=== PATIENT | male | born 1995 | race Caucasian/White ===

== ENCOUNTER 2016-07-21 17:35 | Emergency (ER) | payer OTHER ==
--- NOTE | 2016-07-21 18:03 | ED NURSING NOTES ---
Clinical Report - Nurses [address] [place] [address] 07/21/2016 17:37 Patient: WESLY ERICKSON TRIAGE Triage time 17:44 Jul 21 2016. Acuity: LEVEL 3. Chief Complaint: INJURY TO LEFT HAND. GÓMEZ COMA SCORE: Gómez Coma Scale: 15- eyes open spontaneously (4); best verbal response- oriented x 4 (5); best motor response- obeys commands (6). --17:50 Sandeep Nichols R.N. 17:44 07/21/16. BP: 157/99. HR: 110. RR: 18. O2 saturation: 100%. Temp: 98.4 F. Pain level now 10. --17:50 Sandeep Nichols R.N. Weight: 108.8 kg stated. Height/Length: 77 inches Per Patient. BMI: 28.5. Growth Chart Percentile: Weight: 98.7%. Height/Length: 99.6%. --17:48 Sadneep Nichols R.N. Medications Flonase Nasal. --17:49 Sandeep Nichols R.N. Allergies No Known Drug Allergy. --17:49 Sandeep Nichols R.N. History Arrived by private vehicle. Historian: patient. Accompanied by family. This occurred just prior to arrival. ( Has a fishing hook in left thumb from fishing a half an hour ago.). 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 PAST MEDICAL HX: No history of diabetes mellitus, hypertension, heart disease or lung disease. Tetanus status: unknown. SOCIAL HX: Never smoker. No alcohol use or drug use. SELF HARM ASSESSMENT: A self harm assessment was performed. The patient answered "no" to the question "Have you recently felt down, depressed, or hopeless?" and "Do you have thoughts of harming or killing yourself?". FALL RISK ASSESSMENT: Fall risk assessment completed. No fall risk identified. NUTRITIONAL RISK ASSESSMENT: The nutritional risk assessment revealed no deficiencies. FUNCTIONAL ASSESSMENT: Functional assessment: no impairments noted. LEARNING NEEDS ASSESSMENT: The learning needs assessment revealed no barriers. ABUSE ASSESSMENT: Abuse assessment: (yes) The patient was asked "Do you feel safe in your home?". SKIN INTEGRITY ASSESSMENT: Skin integrity risk assessment completed. No skin integrity risk identified. --17:50 Sandeep Nichols R.N. PROBLEMS: Seasonal allergic rhinitis. --17:50 Sandeep Nichols R.N. ADDITIONAL SURGERIES: no known surgeries. Interventions ID band on patient. --17:50 Sandeep Nichols R.N. PHYSICAL ASSESSMENT Ambulatory to room. GENERAL / NEURO / PSYCH: Oriented X 4. Alert. Appears in no acute distress. EXTREMITIES: Capillary refill is less than 2 seconds in the extremities. Extremity pulses are within normal limits. Extremities exhibit normal ROM. Neuro-vascular status intact to the extremity. Left hand: (fishing hook in left thumb). SKIN: Skin is warm and dry. --17:53 Sandeep Nichols R.N. NURSING PROGRESS NOTES The initial plan of care for this patient includes an assessment with efforts to address patient positioning, appropriate ambient lighting and comfortable environmental temperature; impairment of the integumentary system. Reassurance given. Call light placed in reach. Side rails up x 1. Bed placed in lowest position. Brakes of bed on. --17:53 Sandeep Nichols R.N. 17:56 07/21/2016 WFSVEDO-[id number]-YBQEM PERTUSSIS IM 0.5 mL given. (Lot#: [id number], expiration date: 07/13/2018). Given in the right deltoid. Allergies verified and confirmed 5 rights. Vaccine information statement provided to the patient. --17:56 Sandeep Nichols R.N. DISPOSITION / DISCHARGE Departure time: 1814. Condition at departure: improved and stable. No learning barriers present. Discharge instructions provided and reviewed with the patient. Reviewed medication(s) side effects and dosing information. Prescription(s) given to the patient. Patient verbalized understanding. Written instructions provided in Occitan. The patient was discharged by the physician nurseryman assistant. He was discharged home and accompanied by family. He left the Emergency Department ambulatory and via private vehicle. Family member driving. --18:14 Mary Ann Richmond R.N. 18:13 07/21/16. BP: 142/68. HR: 80. RR: 16. O2 saturation: 100%. Pain level now: 0/10. --18:14 Mary Ann Richmond R.N. Locked/Released at 07/24/2016 10:52 by Sandeep Nichols R.N.
--- NOTE | 2016-07-21 18:03 | ED CLINICAL REPORT ---
Clinical Report - Physicians/Mid Levels [facility] [address] [place] [address] 07/21/2016 17:37 Patient: WESLY ERICKSON Time Seen: 17:56. Arrived- By private vehicle. Historian- patient and family. HISTORY OF PRESENT ILLNESS Chief Complaint: Injury to the left thumb. The injury happened just prior to arrival. The patient sustained a puncture wound. (argueta). ( patient was fishing when he accidentally got a fishhook in his left thumb.). Patient is experiencing mild pain. No other injury. REVIEW OF SYSTEMS No swelling, tingling, numbness or weakness. All systems otherwise negative, except as recorded above. PAST HISTORY See nurses notes. No history of heart disease or lung disease. The patient's dominant hand is the right. He has not had a prior injury to the same area. SOCIAL HISTORY Never smoker. No alcohol use or drug use. ADDITIONAL NOTES The nursing notes have been reviewed. PHYSICAL EXAM Appearance: Alert. Anxious. No acute distress. Head: Head atraumatic. Neck: Normal inspection. Neck supple. Respiratory: No respiratory distress. Back: ROM normal. Skin: Skin warm and dry. Extremities: Tip of left thumb: tenderness and visualized foreign body. No erythema or swelling. No exposed bone or loss of the nail bed on the left thumb. No wrist injury. Hand and wrist exam otherwise negative. Extremities otherwise negative. Neuro, Vascular and Tendons: Vascular status intact. Sensation intact. Motor intact. Neuro: Oriented X 3. No motor deficit. No sensory deficit. PROGRESS AND PROCEDURES Removal of Soft Tissue Foreign Body: The foreign body was a fishhook. Located in the left thumb. Prior to the procedure the risks, benefits and alternatives to the procedure were explained and consent was obtained. Local anesthesia provided using 2% lidocaine. Did not use epinephrine. Wound prepped with Hibiclens. Foreign body visualized and removed. Remove using downward pressure and gentle traction. Tetanus immunization given. Warnings provided regarding redness, swelling, pain, fever and drainage. CLINICAL IMPRESSION Removal of metal soft tissue foreign body to the left thumb. Puncture wound present. INSTRUCTIONS Protect wound and keep wound area clean. Soak in warm soapy water twice daily. Apply bacitracin twice daily. Limit use of your left hand for one days until better. No dietary restrictions. Warnings: COMPLICATIONS: Complications from this condition include: possible infection. Future problems may include infection. INFECTION: Watch for signs of infection (increasing heat and redness, pus-like drainage, swelling, or increased pain). Return or see your doctor if these signs occur. Prescription Medications: Cephalexin 500 mg: take 1 capsule orally every 6 hours for 7 days. No refill. Follow-up: Follow up with your doctor as needed. Understanding of the discharge instructions verbalized by patient. (Electronically signed by Bj Chamberlain, 07/21/2016 22:50)
--- NOTE | 2016-07-21 18:03 | ED ORDER SUMMARY ---
..... Patient: WESLY ERICKSON OrderSheet [facility] VisitID: [id number] [address] [place] [address] 20y, M Registration Date/Time: 07/21/2016 ORDER SHEET Weight: 108.8 kg (stated) Allergies: No Known Drug Allergy GENERAL ORDERS: MEDICATION ORDERS: Szczcbq-Uhgjgv-Mqxis Pertussis IM 0.5 mL (NOW, per protocol) (17:54 07/21/2016 LWhalen R.N. verbal order read back to JCoates) (17:56 LWhalen R.N.) IV FLUIDS: ORDER SHEET NOTES: [Electronically signed by Bj Chamberlain (22:50 07/21/2016)] [Electronically signed by Sandeep Nichols R.N. (10:52 07/24/2016)] [Electronically locked/signed by Sandeep Nichols R.N. (10:52 07/24/2016)]
--- NOTE | 2016-07-21 18:03 | ED NURSING NOTES ---
Clinical Report - Nurses [address] [place] [address] 07/21/2016 17:37 Patient: WESLY ERICKSON TRIAGE Triage time 17:44 Jul 21 2016. Acuity: LEVEL 3. Chief Complaint: INJURY TO LEFT HAND. GÓMEZ COMA SCORE: Gómez Coma Scale: 15- eyes open spontaneously (4); best verbal response- oriented x 4 (5); best motor response- obeys commands (6). --17:50 Sandeep Nichols R.N. 17:44 07/21/16. BP: 157/99. HR: 110. RR: 18. O2 saturation: 100%. Temp: 98.4 F. Pain level now 10. --17:50 Sandeep Nichols R.N. Weight: 108.8 kg stated. Height/Length: 77 inches Per Patient. BMI: 28.5. Growth Chart Percentile: Weight: 98.7%. Height/Length: 99.6%. --17:48 Sandeep Nichols R.N. Medications Flonase Nasal. --17:49 Sandeep Nichols R.N. Allergies No Known Drug Allergy. --17:49 Sandeep Nichols R.N. History Arrived by private vehicle. Historian: patient. Accompanied by family. This occurred just prior to arrival. ( Has a fishing hook in left thumb from fishing a half an hour ago.). 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 PAST MEDICAL HX: No history of diabetes mellitus, hypertension, heart disease or lung disease. Tetanus status: unknown. SOCIAL HX: Never smoker. No alcohol use or drug use. SELF HARM ASSESSMENT: A self harm assessment was performed. The patient answered "no" to the question "Have you recently felt down, depressed, or hopeless?" and "Do you have thoughts of harming or killing yourself?". FALL RISK ASSESSMENT: Fall risk assessment completed. No fall risk identified. NUTRITIONAL RISK ASSESSMENT: The nutritional risk assessment revealed no deficiencies. FUNCTIONAL ASSESSMENT: Functional assessment: no impairments noted. LEARNING NEEDS ASSESSMENT: The learning needs assessment revealed no barriers. ABUSE ASSESSMENT: Abuse assessment: (yes) The patient was asked "Do you feel safe in your home?". SKIN INTEGRITY ASSESSMENT: Skin integrity risk assessment completed. No skin integrity risk identified. --17:50 Sandeep Nichols R.N. PROBLEMS: Seasonal allergic rhinitis. --17:50 Sandeep Nichols R.N. ADDITIONAL SURGERIES: no known surgeries. Interventions ID band on patient. --17:50 Sandeep Nichols R.N. PHYSICAL ASSESSMENT Ambulatory to room. GENERAL / NEURO / PSYCH: Oriented X 4. Alert. Appears in no acute distress. EXTREMITIES: Capillary refill is less than 2 seconds in the extremities. Extremity pulses are within normal limits. Extremities exhibit normal ROM. Neuro-vascular status intact to the extremity. Left hand: (fishing hook in left thumb). SKIN: Skin is warm and dry. --17:53 Sandeep Nichols R.N. NURSING PROGRESS NOTES The initial plan of care for this patient includes an assessment with efforts to address patient positioning, appropriate ambient lighting and comfortable environmental temperature; impairment of the integumentary system. Reassurance given. Call light placed in reach. Side rails up x 1. Bed placed in lowest position. Brakes of bed on. --17:53 Sandeep Nichols R.N. 17:56 07/21/2016 [id number]-MKVUGJ-GRTOT PERTUSSIS IM 0.5 mL given. (Lot#: [id number], expiration date: 07/13/2018). Given in the right deltoid. Allergies verified and confirmed 5 rights. Vaccine information statement provided to the patient. --17:56 Sandeep Nichols R.N. DISPOSITION / DISCHARGE Departure time: 1814. Condition at departure: improved and stable. No learning barriers present. Discharge instructions provided and reviewed with the patient. Reviewed medication(s) side effects and dosing information. Prescription(s) given to the patient. Patient verbalized understanding. Written instructions provided in Slovenian. The patient was discharged by the physician orthotics prosthetics assistant. He was discharged home and accompanied by family. He left the Emergency Department ambulatory and via private vehicle. Family member driving. --18:14 Mary Ann Richmond R.N. 18:13 07/21/16. BP: 142/68. HR: 80. RR: 16. O2 saturation: 100%. Pain level now: 0/10. --18:14 Mary Ann Richmond R.N. Locked/Released at 07/24/2016 10:52 by Sandeep Nichols R.N.
--- NOTE | 2016-07-21 18:03 | ED CLINICAL REPORT ---
Clinical Report - Physicians/Mid Levels [facility] [address] [place] [address] 07/21/2016 17:37 Patient: WESLY ERICKSON Time Seen: 17:56. Arrived- By private vehicle. Historian- patient and family. HISTORY OF PRESENT ILLNESS Chief Complaint: Injury to the left thumb. The injury happened just prior to arrival. The patient sustained a puncture wound. (argueta). ( patient was fishing when he accidentally got a fishhook in his left thumb.). Patient is experiencing mild pain. No other injury. REVIEW OF SYSTEMS No swelling, tingling, numbness or weakness. All systems otherwise negative, except as recorded above. PAST HISTORY See nurses notes. No history of heart disease or lung disease. The patient's dominant hand is the right. He has not had a prior injury to the same area. SOCIAL HISTORY Never smoker. No alcohol use or drug use. ADDITIONAL NOTES The nursing notes have been reviewed. PHYSICAL EXAM Appearance: Alert. Anxious. No acute distress. Head: Head atraumatic. Neck: Normal inspection. Neck supple. Respiratory: No respiratory distress. Back: ROM normal. Skin: Skin warm and dry. Extremities: Tip of left thumb: tenderness and visualized foreign body. No erythema or swelling. No exposed bone or loss of the nail bed on the left thumb. No wrist injury. Hand and wrist exam otherwise negative. Extremities otherwise negative. Neuro, Vascular and Tendons: Vascular status intact. Sensation intact. Motor intact. Neuro: Oriented X 3. No motor deficit. No sensory deficit. PROGRESS AND PROCEDURES Removal of Soft Tissue Foreign Body: The foreign body was a fishhook. Located in the left thumb. Prior to the procedure the risks, benefits and alternatives to the procedure were explained and consent was obtained. Local anesthesia provided using 2% lidocaine. Did not use epinephrine. Wound prepped with Hibiclens. Foreign body visualized and removed. Remove using downward pressure and gentle traction. Tetanus immunization given. Warnings provided regarding redness, swelling, pain, fever and drainage. CLINICAL IMPRESSION Removal of metal soft tissue foreign body to the left thumb. Puncture wound present. INSTRUCTIONS Protect wound and keep wound area clean. Soak in warm soapy water twice daily. Apply bacitracin twice daily. Limit use of your left hand for one days until better. No dietary restrictions. Warnings: COMPLICATIONS: Complications from this condition include: possible infection. Future problems may include infection. INFECTION: Watch for signs of infection (increasing heat and redness, pus-like drainage, swelling, or increased pain). Return or see your doctor if these signs occur. Prescription Medications: Cephalexin 500 mg: take 1 capsule orally every 6 hours for 7 days. No refill. Follow-up: Follow up with your doctor as needed. Understanding of the discharge instructions verbalized by patient. (Electronically signed by Bj Chamberlain, 07/21/2016 22:50)
--- NOTE | 2016-07-21 18:03 | ED ORDER SUMMARY ---
..... Patient: WESLY ERICKSON OrderSheet [facility] VisitID: [id number] [address] [place] [address] 20y, M Registration Date/Time: 07/21/2016 ORDER SHEET Weight: 108.8 kg (stated) Allergies: No Known Drug Allergy GENERAL ORDERS: MEDICATION ORDERS: Vjjguqy-Wirjzw-Htdim Pertussis IM 0.5 mL (NOW, per protocol) (17:54 07/21/2016 LWhalen R.N. verbal order read back to JCoates) (17:56 LWhalen R.N.) IV FLUIDS: ORDER SHEET NOTES: [Electronically signed by Bj Chamberlain (22:50 07/21/2016)] [Electronically signed by Sandeep Nichols R.N. (10:52 07/24/2016)] [Electronically locked/signed by Sandeep Nichols R.N. (10:52 07/24/2016)]
--- NOTE | 2016-07-24 10:52 | ED MAR SUMMARY ---
..... Medication Administration Record [facility] [address] [place] [address] Patient: WESLY ERICKSON Visit ID: [id number] 20y, M Weight: 108.8 kg Height/Length: 77 in BMI: 28.5 ALLERGIES: No Known Drug Allergy Given 17:56 07/21/2016 Sandeep Nichols R.N. Medication Administered: USMSPDF-FUTGAT-ROXGW PERTUSSIS [IM], Dose: 0.5 mL IM. Medication Ordered: Mejiebf-Ibidld-Ajkdt Pertussis IM 0.5 mL (NOW, per protocol).
--- NOTE | 2016-07-24 10:52 | ED MED RECONCILIATION SUMMARY ---
Patient: WESLY ERICKSON Medication Reconciliation Report [facility] VisitID: [id number] [address] [place] [address] 20y, M Registration Date/Time: 07/21/2016 Weight: 108.8 kg Height/Length: 77 in. BMI: 28.5 ALLERGIES: No Known Drug Allergy The patient's Home Medications are listed below: THE FOLLOWING MEDICATIONS NEED TO BE RECONCILED: Flonase Nasal The source(s) of the original Home Medication information: Not obtained. The following Medications were given to the patient in the Emergency Department: LWVJFTA-KSSEGQ-NJBAE PERTUSSIS [IM] IM 0.5 mL, administered: 07/21/2016 5:56:00 PM The following Medications were prescribed to the patient: Cephalexin 500 mg: take 1 capsule orally every 6 hours for 7 days. No refill. -- Bj Chamberlain
--- NOTE | 2016-07-24 10:52 | ED DISCHARGE INSTRUCTIONS ---
Patient: WESLY ERICKSON General Instructions [facility] VisitID: [id number] [place] [address] 20y, M Registration Date/Time: 07/21/2016 Removal of metal soft tissue foreign body to the left thumb. Puncture wound present. INSTRUCTIONS Protect wound and keep wound area clean. Soak in warm soapy water twice daily. Apply bacitracin twice daily. Limit use of your left hand for one days until better. No dietary restrictions. Warnings: COMPLICATIONS: Complications from this condition include: possible infection. Future problems may include infection. INFECTION: Watch for signs of infection (increasing heat and redness, pus-like drainage, swelling, or increased pain). Return or see your doctor if these signs occur. Prescription Medications: Cephalexin 500 mg: take 1 capsule orally every 6 hours for 7 days. No refill. Follow-up: Follow up with your doctor as needed. Understanding of the discharge instructions verbalized by patient. ADDITIONAL INFORMATION Foreign ObjectUnder The Skin, Removed An object has been removed from under your skin. Although care was taken to remove all particles present, there is always a chance that a small piece may have been left behind. Very small particles that remain under the skin usually cause no problem and need no further treatment. Home care The following guidelines will help you care for your wound at home: Keep the wound clean and dry. If a bandage was applied and it becomes wet or dirty, replace it. Otherwise, leave it in place for the first 24 hours, then change it once a day or as directed. Ifsutureswere used, clean the wound daily: After removing the bandage, wash the area with soap and water. After cleaning, apply a thin layer of antibiotic ointment. This will keep the wound clean and make it easier to remove the stitches. Reapply the bandage. You may shower as usual after the first 24 hours, but do not soak the area in water (no baths or swimming) until the sutures are removed. If asurgical tape closureswere used, keep the area clean and dry. If it becomes wet, blot it dry with a towel. You may use acetaminophen or ibuprofen to control pain, unless another pain medicine was prescribed.If you have chronic liver or kidney disease or ever had a stomach ulcer or GI bleeding, talk with your doctor before using these medicines. Follow-up care Most skin wounds heal within ten days. However, there is an increased risk of infection if there is any particle remaining under the skin. Therefore, check the wound daily for the signs listed below. Stitches should be removed within 714 days. If surgical tape closures were used, remove them after seven days unless told otherwise. Note:Any X-rays taken will be reviewed by a radiologist. You will be notified if there are new findings that may affect your care. When to seek medical care Get prompt medical attention if any of the following occur: Increasing pain in the wound Redness, swelling or pus coming from the wound Fever of 100.4F (38C) or higher, or as directed by your health care provider Puncture Wound (General) A puncture wound is a hole through the skin. Bacteria, dirt and debris can be drawn into this wound, increasing the risk of infection. However, antibiotics are usually not prescribed for this injury unless signs of infection are already present. Therefore, it is important to observe the wound closely for the signs of infection listed below. Home Care: If your wound is on an arm, hand, leg, or foot, keep that part raised during the first 48 hours to reduce swelling and pain. Keep the wound clean and dry. If a bandage was applied and it becomes wet or dirty, replace it. Otherwise, leave it in place for the next 24 hours. You may use acetaminophen (Tylenol) or ibuprofen (Motrin, Advil) to control pain, unless another medicine was prescribed. [NOTE: If you have chronic liver or kidney disease or ever had a stomach ulcer or GI bleeding, talk with your doctor before using these medicines.] You may shower as usual. However, do not soak the area in water (no baths or swimming) during the first 48 hours. Follow Up: Most puncture wounds heal within 10 days. However, an infection may sometimes occur despite proper treatment. If small particles were drawn into the puncture wound (such as fragments of cloth, rubber, wood or dirt), an infection may occur. These fragments are very hard to find during the first exam since it is not possible to get a good look inside a puncture wound and they do not show on an X-ray. Antibiotics and a minor surgical procedure to find and remove the foreign object will be needed if this happens. Therefore, check the wound daily for the warning signs listed below. Get Prompt Medical Attention if any of the following occur: SIGNS OF INFECTION: Increasing pain in the wound Redness, swelling, pus or red lines coming from the wound Fever of 100.4F (38C) or higher, or as directed by your healthcare provider Cephalexin Monohydrate Oral tablet What is this medicine? CEPHALEXIN (sef a MUONA in) is a cephalosporin antibiotic. It is used to treat certain kinds of bacterial infections It will not work for colds, flu, or other viral infections. How should I use this medicine? Take this medicine by mouth with a full glass of water. Follow the directions on the prescription label. This medicine can be taken with or without food. Take your medicine at regular intervals. Do not take your medicine more often than directed. Take all of your medicine as directed even if you think you are better. Do not skip doses or stop your medicine early. Talk to your bacteriology technician regarding the use of this medicine in children. While this drug may be prescribed for selected conditions, precautions do apply. What side effects may I notice from receiving this medicine? Side effects that you should report to your doctor or health medicare nurse as soon as possible: allergic reactions like skin rash, itching or hives, swelling of the face, lips, or tongue breathing problems pain or trouble passing urine redness, blistering, peeling or loosening of the skin, including inside the mouth severe or watery diarrhea unusually weak or tired yellowing of the eyes, skin Side effects that usually do not require medical attention (report to your doctor or health medicare nurse if they continue or are bothersome): gas or heartburn genital or anal irritation headache joint or muscle pain nausea, vomiting What may interact with this medicine? probenecid some other antibiotics What if I miss a dose? If you miss a dose, take it as soon as you can. If it is almost time for your next dose, take only that dose. Do not take double or extra doses. There should be at least 4 to 6 hours between doses. Where should I keep my medicine? Keep out of the reach of children. Store at room temperature between 59 and 86 degrees F (15 and 30 degrees C). Throw away any unused medicine after the expiration date. What should I tell my health care provider before I take this medicine? They need to know if you have any of these conditions: kidney disease stomach or intestine problems, especially colitis an unusual or allergic reaction to cephalexin, other cephalosporins, penicillins, other antibiotics, medicines, foods, dyes or preservatives or trying to get breast-feeding What should I watch for while using this medicine? Tell your doctor or health medicare nurse if your symptoms do not begin to improve in a few days. Do not treat diarrhea with over the counter products. Contact your doctor if you have diarrhea that lasts more than 2 days or if it is severe and watery. If you have diabetes, you may get a false-positive result for sugar in your urine. Check with your doctor or health medicare nurse. You have been given the following additional information: Foreign Body, Soft Tissue (Removed) Puncture Wound, General Cephalexin Monohydrate Oral tablet Limit use of your left hand for one days until better. (Electronically signed by Bj Chamberlain, 07/21/2016 22:50)
--- NOTE | 2016-07-24 10:52 | ED DISCHARGE INSTRUCTIONS ---
Patient: WESLY ERICKSON General Instructions [facility] VisitID: [id number] [place] [address] 20y, M Registration Date/Time: 07/21/2016 Removal of metal soft tissue foreign body to the left thumb. Puncture wound present. INSTRUCTIONS Protect wound and keep wound area clean. Soak in warm soapy water twice daily. Apply bacitracin twice daily. Limit use of your left hand for one days until better. No dietary restrictions. Warnings: COMPLICATIONS: Complications from this condition include: possible infection. Future problems may include infection. INFECTION: Watch for signs of infection (increasing heat and redness, pus-like drainage, swelling, or increased pain). Return or see your doctor if these signs occur. Prescription Medications: Cephalexin 500 mg: take 1 capsule orally every 6 hours for 7 days. No refill. Follow-up: Follow up with your doctor as needed. Understanding of the discharge instructions verbalized by patient. ADDITIONAL INFORMATION Foreign ObjectUnder The Skin, Removed An object has been removed from under your skin. Although care was taken to remove all particles present, there is always a chance that a small piece may have been left behind. Very small particles that remain under the skin usually cause no problem and need no further treatment. Home care The following guidelines will help you care for your wound at home: Keep the wound clean and dry. If a bandage was applied and it becomes wet or dirty, replace it. Otherwise, leave it in place for the first 24 hours, then change it once a day or as directed. Ifsutureswere used, clean the wound daily: After removing the bandage, wash the area with soap and water. After cleaning, apply a thin layer of antibiotic ointment. This will keep the wound clean and make it easier to remove the stitches. Reapply the bandage. You may shower as usual after the first 24 hours, but do not soak the area in water (no baths or swimming) until the sutures are removed. If asurgical tape closureswere used, keep the area clean and dry. If it becomes wet, blot it dry with a towel. You may use acetaminophen or ibuprofen to control pain, unless another pain medicine was prescribed.If you have chronic liver or kidney disease or ever had a stomach ulcer or GI bleeding, talk with your doctor before using these medicines. Follow-up care Most skin wounds heal within ten days. However, there is an increased risk of infection if there is any particle remaining under the skin. Therefore, check the wound daily for the signs listed below. Stitches should be removed within 714 days. If surgical tape closures were used, remove them after seven days unless told otherwise. Note:Any X-rays taken will be reviewed by a radiologist. You will be notified if there are new findings that may affect your care. When to seek medical care Get prompt medical attention if any of the following occur: Increasing pain in the wound Redness, swelling or pus coming from the wound Fever of 100.4F (38C) or higher, or as directed by your health care provider Puncture Wound (General) A puncture wound is a hole through the skin. Bacteria, dirt and debris can be drawn into this wound, increasing the risk of infection. However, antibiotics are usually not prescribed for this injury unless signs of infection are already present. Therefore, it is important to observe the wound closely for the signs of infection listed below. Home Care: If your wound is on an arm, hand, leg, or foot, keep that part raised during the first 48 hours to reduce swelling and pain. Keep the wound clean and dry. If a bandage was applied and it becomes wet or dirty, replace it. Otherwise, leave it in place for the next 24 hours. You may use acetaminophen (Tylenol) or ibuprofen (Motrin, Advil) to control pain, unless another medicine was prescribed. [NOTE: If you have chronic liver or kidney disease or ever had a stomach ulcer or GI bleeding, talk with your doctor before using these medicines.] You may shower as usual. However, do not soak the area in water (no baths or swimming) during the first 48 hours. Follow Up: Most puncture wounds heal within 10 days. However, an infection may sometimes occur despite proper treatment. If small particles were drawn into the puncture wound (such as fragments of cloth, rubber, wood or dirt), an infection may occur. These fragments are very hard to find during the first exam since it is not possible to get a good look inside a puncture wound and they do not show on an X-ray. Antibiotics and a minor surgical procedure to find and remove the foreign object will be needed if this happens. Therefore, check the wound daily for the warning signs listed below. Get Prompt Medical Attention if any of the following occur: SIGNS OF INFECTION: Increasing pain in the wound Redness, swelling, pus or red lines coming from the wound Fever of 100.4F (38C) or higher, or as directed by your healthcare provider Cephalexin Monohydrate Oral tablet What is this medicine? CEPHALEXIN (sef a MOUNA in) is a cephalosporin antibiotic. It is used to treat certain kinds of bacterial infections It will not work for colds, flu, or other viral infections. How should I use this medicine? Take this medicine by mouth with a full glass of water. Follow the directions on the prescription label. This medicine can be taken with or without food. Take your medicine at regular intervals. Do not take your medicine more often than directed. Take all of your medicine as directed even if you think you are better. Do not skip doses or stop your medicine early. Talk to your rotary driller regarding the use of this medicine in children. While this drug may be prescribed for selected conditions, precautions do apply. What side effects may I notice from receiving this medicine? Side effects that you should report to your doctor or health medical care evaluation specialist as soon as possible: allergic reactions like skin rash, itching or hives, swelling of the face, lips, or tongue breathing problems pain or trouble passing urine redness, blistering, peeling or loosening of the skin, including inside the mouth severe or watery diarrhea unusually weak or tired yellowing of the eyes, skin Side effects that usually do not require medical attention (report to your doctor or health medical care evaluation specialist if they continue or are bothersome): gas or heartburn genital or anal irritation headache joint or muscle pain nausea, vomiting What may interact with this medicine? probenecid some other antibiotics What if I miss a dose? If you miss a dose, take it as soon as you can. If it is almost time for your next dose, take only that dose. Do not take double or extra doses. There should be at least 4 to 6 hours between doses. Where should I keep my medicine? Keep out of the reach of children. Store at room temperature between 59 and 86 degrees F (15 and 30 degrees C). Throw away any unused medicine after the expiration date. What should I tell my health care provider before I take this medicine? They need to know if you have any of these conditions: kidney disease stomach or intestine problems, especially colitis an unusual or allergic reaction to cephalexin, other cephalosporins, penicillins, other antibiotics, medicines, foods, dyes or preservatives or trying to get breast-feeding What should I watch for while using this medicine? Tell your doctor or health medical care evaluation specialist if your symptoms do not begin to improve in a few days. Do not treat diarrhea with over the counter products. Contact your doctor if you have diarrhea that lasts more than 2 days or if it is severe and watery. If you have diabetes, you may get a false-positive result for sugar in your urine. Check with your doctor or health medical care evaluation specialist. You have been given the following additional information: Foreign Body, Soft Tissue (Removed) Puncture Wound, General Cephalexin Monohydrate Oral tablet Limit use of your left hand for one days until better. (Electronically signed by Bj Chamberlain, 07/21/2016 22:50)
--- NOTE | 2016-07-24 10:52 | ED MAR SUMMARY ---
..... Medication Administration Record [facility] [address] [place] [address] Patient: WESLY ERICKSON Visit ID: [id number] 20y, M Weight: 108.8 kg Height/Length: 77 in BMI: 28.5 ALLERGIES: No Known Drug Allergy Given 17:56 07/21/2016 Sandeep Nichols R.N. Medication Administered: [id number] PERTUSSIS [IM], Dose: 0.5 mL IM. Medication Ordered: Jpsoafi-Lzzwee-Ehree Pertussis IM 0.5 mL (NOW, per protocol).
--- NOTE | 2016-07-24 10:52 | ED MED RECONCILIATION SUMMARY ---
Patient: WESLY ERICKSON Medication Reconciliation Report [facility] VisitID: [id number] [address] [place] [address] 20y, M Registration Date/Time: 07/21/2016 Weight: 108.8 kg Height/Length: 77 in. BMI: 28.5 ALLERGIES: No Known Drug Allergy The patient's Home Medications are listed below: THE FOLLOWING MEDICATIONS NEED TO BE RECONCILED: Flonase Nasal The source(s) of the original Home Medication information: Not obtained. The following Medications were given to the patient in the Emergency Department: [id number] PERTUSSIS [IM] IM 0.5 mL, administered: 07/21/2016 5:56:00 PM The following Medications were prescribed to the patient: Cephalexin 500 mg: take 1 capsule orally every 6 hours for 7 days. No refill. -- Bj Chamberlain
== END 2016-07-21 18:15 | disposition home or self-care (01) ==
LOC: ED SRH 17:35
DX: S61.042A Puncture wound with foreign body of left thumb without damage to nail, initial encounter (principal); W45.8XXA Other foreign body or object entering through skin, initial encounter; Y93.89 Activity, other specified; Y92.89 Other specified places as the place of occurrence of the external cause; Y99.8 Other external cause status; Z23 Encounter for immunization